=== PATIENT | female | born 2000 | race Two or more races ===

== ENCOUNTER 2021-10-31 21:18 | Emergency (ER) | payer OTHER ==
[~2021-10-31] VITALS: Ht 157.5 cm; Wt 63.5 kg
[2021-11-01 03:04] VITALS: BP 114/80
== END 2021-11-01 03:39 | disposition home or self-care (01) ==
LOC: ER 21:29
DX: S61.210A Laceration without foreign body of right index finger without damage to nail, initial encounter (principal); W25.XXXA Contact with sharp glass, initial encounter; Y93.89 Activity, other specified; Y92.89 Other specified places as the place of occurrence of the external cause; Y99.8 Other external cause status
CPT/HCPCS: 12002